=== PATIENT | male | born 1960 | race African-American/Black ===

== ENCOUNTER 2017-10-19 19:42 | Emergency (ER) | payer MEDICAID ==
[~2017-10-19] VITALS: Ht 182.9 cm; Wt 67.0 kg
[2017-10-19 20:21] LABS: MEAN CORPUSCULAR HEMOGLOBIN 31.6 pg (27.5-34.5); MEAN CORPUSCULAR HGB CONC 33.6 g/dL (33.2-36.2); MEAN PLATELET VOLUME 7.3 fL (7.4-10.4); PLATELET COUNT 284 x10^3/uL (130-400); RED BLOOD COUNT 3.79 x10^6/uL (4.38-5.82); RED CELL DISTRIBUTION WIDTH 12.9 % (9.4-14.8)
[2017-10-19] MEDS ORDERED: ONDANSETRON 2MG/ML, 2ML IVPush ONE (20:30)
[2017-10-19] MEDS ORDERED: MORPHINE SULFATE 4 MG/ML, 1ML IVPush PRN (20:30)
[2017-10-19] MEDS ORDERED: PLEASE ENTER ALLERGIES MC SCH (20:30)
[2017-10-19] MEDS ORDERED: SODIUM CHLORIDE 0.9% 1,000ML IVBOLUS ONE (20:30)
[2017-10-19 20:35] LABS: ALANINE AMINOTRANSFERASE 53 U/L (12-78); ALBUMIN 3.5 g/dL (3.4-5.0); ANION GAP 10 mmol/L (5-15); CHLORIDE 103 mmol/L (98-107); CREATININE 1.25 mg/dL (0.7-1.3)
[2017-10-19 20:36] LABS: ALKALINE PHOSPHATASE 106 U/L (45-117); BILIRUBIN,TOTAL 1.1 mg/dL (0.2-1.0); TOTAL PROTEIN 7.6 g/dL (6.4-8.2)
[2017-10-19 20:38] LABS: MD YES
[2017-10-19 20:42] LABS: <PLATELET ESTIMATE> ADEQUATE; <PLT MORPHOLOGY> NORMAL PLT MORPH; <RBC MORPHOLOGY> NORMAL; BASOS#(MANUAL) 0.27 x10^3/uL (0-0.1); BASOS% (MANUAL) 5 % (0-1); LYMPH#(MANUAL) 2.97 x10^3/uL (1-3.4); LYMPHS% (MANUAL) 55 % (22-44); MONOS#(MANUAL) 0.32 x10^3/uL (0.3-2.7); MONOS% (MANUAL) 6 % (2-9); REACTIVE LYMPHS # (MANUAL) 0.49 x10^3/uL (0-0); REACTIVE LYMPHS % (MANUAL) 9 % (0-0); SEG#(MANUAL) 1.35 x10^3/uL (1.8-6.8); SEGS% (MANUAL) 25 % (42-75)
[2017-10-19] MEDS ORDERED: OMNIPAQUE 350 MG/ML, 100ML BOTTLE ONE (21:00)
[2017-10-19] MEDS ORDERED: ZIPRASIDONE 20 MG INJ IM ONE (21:00)
[2017-10-19 22:49] VITALS: BP 109/72
== END 2017-10-20 00:12 | disposition home or self-care (01) ==
LOC: ED 23:59
DX: K85.20 Alcohol induced acute pancreatitis without necrosis or infection (principal); F10.220 Alcohol dependence with intoxication, uncomplicated; F41.9 Anxiety disorder, unspecified; F14.10 Cocaine abuse, uncomplicated; I10 Essential (primary) hypertension; Y90.9 Presence of alcohol in blood, level not specified
CPT/HCPCS: 36415; 71045; 74177; 80053; 80307; 83690; 85025; 93005; 99285; Q9967

== ENCOUNTER 2017-10-22 05:36 | Emergency (ER) | payer MEDICAID ==
[~2017-10-22] VITALS: Ht 185.4 cm; Wt 75.0 kg
[2017-10-22 05:42] VITALS: BP 151/100
[2017-10-22] MEDS ORDERED: ONDANSETRON ODT 4 MG PO ONE (06:00)
== END 2017-10-22 06:11 | disposition left against medical advice (07) ==
LOC: ED 05:42
DX: R07.89 Other chest pain (principal); Z72.9 Problem related to lifestyle, unspecified
CPT/HCPCS: 99283